=== PATIENT | male | born 1940 ===

== ENCOUNTER 2021-09-12 05:30 | Day surgery (SDC) | payer OTHER ==
[~2021-09-12 05:30] MED LIST: CETRIZINE PO; COZAAR100 MG PO; DORZOLAMIDE HCL10 ML; HYDROCH PO; LATANO; PLAVIX75 MG PO; TAMS0.4C PO; TOPROL XL50 M1 PO; UBIQUINOL100 MG PO; [UNRECOGNIZED DRUG - OTHER] PO
[2021-09-12] MEDS ORDERED: PERCOCET 5-3251 EACH PO (13:51)
== END 2021-09-12 16:00 | disposition home or self-care (01) ==
LOC: CIR.AMB 05:30
PROVIDERS: ATTEND Surgery
DX: K64.4 Residual hemorrhoidal skin tags (principal); K64.8 Other hemorrhoids; Z20.822 Contact with and (suspected) exposure to COVID-19